=== PATIENT | female | born 1970 | race Caucasian/White ===

== ENCOUNTER 2017-01-20 13:03 | Emergency (ER) | payer SELFPAY ==
[~2017-01-20] VITALS: Ht 154.9 cm; Wt 63.5 kg
--- NOTE | 2017-01-20 14:11 | Emergency Room Report ---
History of Present Illness General Chief Complaint: Upper Respiratory Illness Source: Patient Present Illness HPI 47 YO Female presents to the ED c/o : sore throat and increased phlegm in her throat x 3 days. Pt rates pain as 4/10 in severity. denies fevers, chills, or productive cough. denies neck pain, difficulty swallowing, changes to voice. Pt reports had bronchitis 2 weeks ago. denies rashes. Denies CP, Palpitations, LOC, AMS, dizziness, Changes in Vision, Sensation, paresthesias, or a sudden severe headache. Allergies: Coded Allergies: No Known Allergies (Unverified , 01/20/17) Patient History Past Medical History: see triage record Past Surgical History: none Pertinent Family History: none Last Menstrual Period: 1 week ago Now: No Reviewed Nursing Documentation: PMH: Agreed, PSxH: Agreed Nursing Documentation-PMH Past Medical History: No Stated History Review of Systems All Other Systems: negative except mentioned in HPI Physical Exam Vital Signs Date Time Temp Pulse Resp B/P Pulse Ox O2 Delivery O2 Flow Rate FiO2 01/20/17 13:15 97.9 87 20 127/75 98 Room Air Sp02 EP Interpretation: reviewed, normal General Appearance: no apparent distress, alert, GCS 15, non-toxic Head: normocephalic, atraumatic Eyes: bilateral eye PERRL, bilateral eye normal inspection ENT: hearing grossly normal, normal pharynx, no angioedema, normal voice, TMs + canals normal, uvula midline, moist mucus membranes, pharyngeal erythema Neck: full range of motion, no meningismus, no bony tend, supple/symm/no masses Respiratory: chest non-tender, lungs clear, normal breath sounds, speaking full sentences Cardiovascular #1: regular rate, rhythm, no edema Musculoskeletal: back normal, gait/station normal, normal range of motion, non- tender Neurologic: alert, oriented x3, responsive, motor strength/tone normal, sensory intact, speech normal Psychiatric: judgement/insight normal, memory normal, mood/affect normal Skin: normal color, no rash, warm/dry, well hydrated Lymphatic: no adenopathy Medical Decision Making PA Attestation Dr. Hewitt is my supervising Physician whom patient management has been discussed with. Diagnostic Impression: Primary Impression: Pharyngitis, acute Qualified Codes: J02.9 - Acute pharyngitis, unspecified Additional Impression: Phlegm in throat ER Course Pt. presents to the ED c/o : sore throat and increased phlegm in her throat x 3 days. denies fevers, chills, or productive cough, denies neck pain. Ddx considered but are not limited to: pharyngitis, strep, E[employer]IPMENT TECH, ludwigs angina, URI Vital signs: are WNL, pt. is afebrile H&PE are most consistent with: pharyngitis presumed viral. pt. does not meet centor criteria, strep is not suspected at this time. Non-toxic in appearance, NAD ORDERS: None required at this time as the diagnosis is clinical ED INTERVENTIONS: none required at this time. DISCHARGE: At this time pt. is stable for d/c to home. Will provide printed patient care instructions, and any necessary prescriptions. Care plan and follow up instructions have been discussed with the patient prior to discharge. Last Vital Signs Date Time Temp Pulse Resp B/P Pulse Ox O2 Delivery O2 Flow Rate FiO2 01/20/17 14:07 87 20 Room Air 01/20/17 13:15 97.9 127/75 98 Disposition: HOME, SELF-CARE Condition: Stable Scripts Acetaminophen* (TYLENOL EXTRA STRENGTH*) 500 Mg Tablet 500 MG ORAL Q6H, #30 TAB 0 Refills Prov: Seema Serra 01/20/17 Guaifenesin (Guaifenesin) 1,200 Mg Tab.er.12h 1200 MG PO BID for 10 Days, #20 TAB Prov: Seema Serra 01/20/17 Cetirizine Hcl* (ZYRTEC*) 10 Mg Tablet 10 MG ORAL DAILY for 14 Days, #15 TAB 0 Refills Prov: Seema Serra 01/20/17 Referrals: HECTOR PATINO (PCP) Patient Instructions: Pharyngitis, [id number] Additional Instructions: Take medications as directed. Follow up with PCP in 3-5 days Return sooner to ED if new symptoms occur, or current symptoms become worse. - Please note that this Emergency Department Report was dictated using [employer] character technology software, occasionally this can lead to erroneous entry secondary to interpretation by the dictation equipment. Seema Serra Jan 20, 2017 14:11
[2017-01-20] MEDS ORDERED: TYLENOL EXTRA500 MG ORAL (14:12)
[2017-01-20] MEDS ORDERED: ZYRTEC10 MG ORAL (14:12)
[2017-01-20] MEDS ORDERED: GUAIFENESIN1200 MG PO (14:12)
[2017-01-20 14:15] VITALS: BP 127/75
== END 2017-01-20 14:15 | disposition home or self-care (01) ==
LOC: EMR 13:50
DX: J02.9 Acute pharyngitis, unspecified (principal)
CPT/HCPCS: 99284